=== PATIENT | female | born 1990 | race Two or more races ===

== ENCOUNTER 2025-03-28 15:41 | Outpatient (CLI) | payer BC ==
[2025-03-28 15:58] LABS: Hematocrit 37.8 % (36.0-46.0); Hemoglobin 12.9 g/dL (12.2-16.2); Mean Corpuscular Hemoglobin 30.8 pg (28.0-32.0); Mean Corpuscular Volume 90.2 fL (80.0-100.0); Nucleated Red Blood Cells % 0.2 %
[2025-03-28 16:15] LABS: Urine Protein, UAD TRACE (Negative)
[2025-03-28 16:18] LABS: Iron 86.0 ug/dL (50-170)
[2025-03-28 16:19] LABS: Alanine Aminotransferase 10 U/L (7-40); Albumin 4.4 g/dL (3.2-4.8); Alkaline Phosphatase 55 U/L (46-116); Anion Gap 11 (5-15); BUN/Creatinine Ratio 7.7 (10.0-20.0); Calcium 9.1 mg/dL (8.7-10.4); Carbon Dioxide 26 mmol/L (20-31); Chloride 105 mmol/L (98-107); Glucose 84 mg/dL (74-106); Potassium 3.8 mmol/L (3.5-5.1); Sodium 142 mmol/L (136-145); Total Protein 7.3 g/dL (5.7-8.2); Triglycerides 41 mg/dL (< 150)
[2025-03-28 16:20] LABS: Bilirubin, Total 0.7 mg/dL (0.2-1.0); Cholesterol 190 mg/dL (< 200); HDL Cholesterol 54 mg/dL (40-59); Total Iron Binding Capacity 257.0 ug/dL (250-425)
[2025-03-28 16:23] LABS: Free T4 (Free Thyroxine) 1.0 ng/dL (0.89-1.76)
[2025-03-28 16:30] LABS: Blood Urea Nitrogen 7 mg/dL (9-23)
== END 2025-03-28 17:00 | disposition home or self-care (01) ==
LOC: LAB 15:41
PROVIDERS: ATTEND Internal Medicine
DX: N81.10 Cystocele, unspecified (principal); K21.9 Gastro-esophageal reflux disease without esophagitis; M62.89 Other specified disorders of muscle; R35.89 Other polyuria
CPT/HCPCS: 36415; 80053; 80061; 81001; 82607; 83036; 83540; 83550; 84439; 84443; 85025